=== PATIENT | female | born 1945 | race Caucasian/White ===

== ENCOUNTER 2019-01-15 01:34 | Outpatient (CLI) | payer MEDICARE, BC, SELFPAY | END 2019-01-15 01:54 | PROVIDERS: PCP Family Medicine Adult Medicine | DX: R49.0 Dysphonia (principal) | CPT/HCPCS: 92524 ==

== ENCOUNTER 2019-01-21 02:34 | Outpatient (RCR) | payer MEDICARE, BC, SELFPAY | END 2019-01-29 23:59 | disposition home or self-care (01) | LOC: SP 02:34 | PROVIDERS: PCP Family Medicine Adult Medicine | DX: R49.0 Dysphonia (principal) | CPT/HCPCS: 92507 ==

== ENCOUNTER 2019-02-11 01:31 | Outpatient (RCR) | payer MEDICARE, BC, SELFPAY | END 2019-03-01 23:59 | disposition home or self-care (01) | LOC: SP 01:31 | PROVIDERS: PCP Family Medicine Adult Medicine | DX: R49.0 Dysphonia (principal) | CPT/HCPCS: 92507 ==

== ENCOUNTER 2019-02-25 00:11 | Outpatient (RCR) | payer MEDICARE, BC, SELFPAY | END 2019-03-01 23:59 | disposition home or self-care (01) | LOC: SP 00:11 | PROVIDERS: PCP Family Medicine Adult Medicine | DX: R49.0 Dysphonia (principal) | CPT/HCPCS: 92507 ==

== ENCOUNTER 2019-03-14 02:17 | Outpatient (RCR) | payer MEDICARE, BC, SELFPAY | END 2019-03-31 23:59 | LOC: SP 02:17 | PROVIDERS: PCP Family Medicine Adult Medicine | DX: R49.0 Dysphonia (principal) | CPT/HCPCS: 92507 ==

== ENCOUNTER 2024-12-06 10:41 | Emergency (ER) | payer MEDICARE, SELFPAY ==
[2024-12-06 10:46] VITALS: BP 156/95; PULSE 79; RESP 16; TEMP 36.6; O2SAT 96
--- NOTE | 2024-12-06 11:13 | W.ED.GENAD ---
Discharge Plan Disposition Patient Disposition: Home Condition: Stable Discharge Details Clinical Impression: Hematoma of occipital region of scalp Primary Care Provider: Harriett Jimenez ED Provider: Bull Cardona Home Meds and New Rx's Prescriptions: No Action lisinopril 5 mg tablet 5 mg PO DAILY levothyroxine 75 mcg tablet 75 mcg PO DAILY carvedilol 12.5 mg tablet 12.5 mg PO BID Rx Instructions: must administer with a meal/food atorvastatin 10 mg tablet 10 mg PO DAILY Discharge Instructions Instructions: Minor Contusion ED Additional Instructions: You were seen in the emergency department for your fall with posterior head strike it has been hours since your onset and you have no evidence of neurologic change, I do not suspect anything more than a minor concussion, please take Tylenol as needed for pain, apply some ice to the area to help with your mild swelling, please return for any neurologic abnormality, nausea, vomiting, slurred speech, dizziness, visual changes Referrals: Harriett Jimenez [Primary Care Provider] - Discharge Data Discharge Date/Time-TO BE ENTERED AT DEPARTURE: 12/06/24 11:42 HPI General Date/Time Provider Initiated Documentation: 12/06/24 11:10. HPI Narrative: 79 year-old female presents to ED today by POV/ambulating with a chief complaint of fell earlier today, striking the back of her head, about 3 hours prior to arrival. Quality described as small bump on back of head, no radiation to nausea/vomiting, repetitive questioning, confusion, dizziness, fatigue, visual changes, severe pain, neck pain. Severity is described as mild. Palliating factors include nothing specific attempted. Provoking factors include nothing specific. Patient not anticoagulated. Related Data Home Medications ?Medication ?Instructions ?Recorded ?Confirmed atorvastatin 10 mg tablet 10 mg PO DAILY 02/23/22 12/06/24 carvedilol 12.5 mg tablet 12.5 mg PO BID 02/23/22 12/06/24 levothyroxine 75 mcg tablet 75 mcg PO DAILY 02/23/22 12/06/24 lisinopril 5 mg tablet 5 mg PO DAILY 02/23/22 12/06/24 Allergies Allergy/AdvReac Type Severity Reaction Status Date / Time penicillin G Allergy rash Verified 12/06/24 10:48 General Stated Complaint: Fall/Non TraumaCriteria VICENTA: 4 Review of Systems All systems reviewed & are unremarkable except as noted in HPI and below Exam Narrative Exam Narrative: GENERAL APPEARANCE: Well-nourished, non-toxic, awake and alert, atraumatic, no acute distress. SKIN: Warm, pink, dry, intact, without rashes/lesions/ulcerations. HEAD: Normocephalic, atraumatic- very small <1cm posterior scalp hematoma without ecchymosis, normal hair distribution for gender/age. EYES: Normal conjunctiva, no exudates on lids/lashes. ENT: Nares patent, no circumoral cyanosis, no facial swelling NECK: Supple, trachea midline, painless cervical ROM, no vertebral tenderness LUNGS/CHEST: Non-labored respirations, normal A/P diameter, symmetrical expansion, no chest wall deformity HEART (CV/PV): No peripheral edema, no JVD. ABDOMEN: Soft, non-distended, no guarding. MSK: Normal ROM, no swelling/deformity to bilateral UEs or LEs, moving all extremities without weakness, no cyanosis, spine midline without tenderness, normal curvature. NEURO: Mental Status AAOx4 - alert to person, place, time, events No facial droop, no forehead involvement. Motor: No focal weakness - strength 5/5 in bilateral UEs and LEs, proximal and distal, symmetric. Sensory: sensation intact to light touch globally. Gait normal: patient ambulated without ataxia into ED room. PSYCH: euthymic, cooperative, pleasant, appropriate speech Course Vital Signs Vital signs: Vital Signs Temperature 36.6 C 12/06/24 10:46 Pulse 79 12/06/24 10:46 Respiratory Rate 16 12/06/24 10:46 Blood Pressure 156/95 H 12/06/24 10:46 Pulse Oximetry 96 12/06/24 10:46 Temperature 36.6 C 12/06/24 10:46 Temperature Source Temporal Artery Scan 12/06/24 10:46 Pulse 79 12/06/24 10:46 Respiratory Rate 16 12/06/24 10:46 Blood Pressure 156/95 H 12/06/24 10:46 Pulse Oximetry 96 12/06/24 10:46 Medical Decision Making This dictation utilizes [id number] dictation software and may contain unedited grammatical errors. 79 year-old female presents to ED today by POV/ambulating with a chief complaint of fell earlier today, striking the back of her head, about 3 hours prior to arrival. Quality described as small bump on back of head, no radiation to nausea/vomiting, repetitive questioning, confusion, dizziness, fatigue, visual changes, severe pain, neck pain. Severity is described as mild. Palliating factors include nothing specific attempted. Provoking factors include nothing specific. Patients' medical history: Hypertension, history of pacemaker. Family and social history: Noncontributory. Pertinent exam findings / vital signs include very small less than 1 cm scalp hematoma to posterior scalp, no midline cervical vertebral tenderness/crepitus/step-offs, neuro intact. Differential / pathologies of concern include headache, mild concussion. Diagnostic studies of: -None, does not meet [place] head CT criteria. Interventions of: -None needed or requested. ED Course/Assessment/Plan: 79-year-old female presents with a minor fall earlier today with a minor bump on the back of her head, no risk factors for ICH and displaying no signs of significant concussion, does not meet [place] head CT criteria, counseled on Tylenol and strict return criteria for any neurologic changes. Findings not consistent with ICH, vertebral injury, significant concussion. Disposition of hematoma of occipital region of skin. Patient verbalized understanding of the plan and return to ED criteria and engaged in shared decision making. Medical Records Medical records reviewed: Yes I reviewed the patient's medical records. Quality:SDOH Health Related Social Needs: No Data to Display PFSH All Active Problems (Updated 12/06/24 @ 11:18 by RICHI Patrick) Hematoma of occipital region of scalp (Acute) Impacted cerumen, left ear (Acute) Pulsatile tinnitus, right ear (Acute) Sensorineural hearing loss, bilateral (Acute) Medical History HTN (hypertension) Hypothyroidism Neoplasm of unspecified behavior of bone, soft tissue, and skin Pacemaker Thyroid disease Thyroid nodule Voice tremor Surgical History H/O adenoidectomy 1952 H/O colonoscopy H/O eye surgery H/O sinus surgery 1956 History of tonsillectomy 1952 Family History Father Colon cancer Mother Heart disease Son Essential tremor Social History Smoking/Tobacco Use Status: Never Smoking risk assessment performed?: Yes Alcohol Intake: never Drug use: Never Substance use type: does not use Do you feel safe at home: Yes Do you feel safe in your relationship?: Yes
[2024-12-06 11:38] VITALS: BP 136/86; PULSE 73; RESP 18; TEMP 36.6; O2SAT 95
== END 2024-12-06 11:42 | disposition home or self-care (01) ==
LOC: ER 11:54
PROVIDERS: Emergency Provider Physician Assistant; PCP General Practice
DX: S00.03XA Contusion of scalp, initial encounter (principal); I10 Essential (primary) hypertension; E03.9 Hypothyroidism, unspecified; Z95.0 Presence of cardiac pacemaker; W18.39XA Other fall on same level, initial encounter; Y93.01 Activity, walking, marching and hiking; Y92.89 Other specified places as the place of occurrence of the external cause
CPT/HCPCS: 99283